=== PATIENT | female | born 1990 | race Caucasian/White ===

== ENCOUNTER 2023-10-24 13:57 | Emergency (ER) | payer SELFPAY ==
[2023-10-24 14:07] VITALS: BP 121/85; PULSE 69; RESP 14; O2SAT 97; BMI 25.7
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
[2023-10-24 17:20] VITALS: RESP 16; O2SAT 99
== END 2023-10-24 17:21 | disposition home or self-care (01) ==
PROVIDERS: Emergency Provider Nurse Practitioner Family
DX: S16.1XXA Strain of muscle, fascia and tendon at neck level, initial encounter (principal); V89.2XXA Person injured in unspecified motor-vehicle accident, traffic, initial encounter
CPT/HCPCS: 72040; 99283

== ENCOUNTER 2024-01-21 18:59 | Emergency (ER) | payer OTHER, SELFPAY ==
[2024-01-21 19:03] VITALS: BP 143/99; PULSE 91; RESP 18; TEMP 36.6; O2SAT 100
--- NOTE | 2024-01-21 20:53 | ED_ITS ---
HPI - SOB/Dyspnea General: Chief Complaint: Shortness of Breath/Dyspnea Stated Complaint: breathed in chemical mixture Time Seen by Provider: 01/21/24 20:39 History of Present Illness: HPI Narrative: Patient was here work and says she was exposed to a chemical yesterday that made her feel very short of breath. Again today she had exposure and felt very short of breath and she felt dizzy. She said then she started panicking. She feels much better now. At this point says she just would like to go home and rest. I agree. Review of Systems Narrative: Constitutional symptoms: Negative except as documented in HPI. Skin symptoms: Negative except as documented in HPI. Eye symptoms: Negative except as documented in HPI. ENMT symptoms: Negative except as documented in HPI. Respiratory symptoms: Negative except as documented in HPI. Cardiovascular symptoms: Negative except as documented in HPI. Gastrointestinal symptoms: Negative except as documented in HPI. Genitourinary symptoms: Negative except as documented in HPI. Musculoskeletal symptoms: Negative except as documented in HPI. Neurologic symptoms: Negative except as documented in HPI. Psychiatric symptoms: Negative except as documented in HPI. Endocrine symptoms: Negative except as documented in HPI. Physical Exam Narrative: EXAM NARRATIVE: General: Alert, no acute distress. Skin: Warm, dry. Head: Normocephalic, atraumatic. Neck: Supple, trachea midline. Eye: Extraocular movements are intact. Ears, nose, mouth and throat: mucosa moist. Cardiovascular: Regular, Normal peripheral perfusion. Respiratory: Lungs are clear to auscultation, respirations are non-labored, breath sounds are equal, Symmetrical chest wall expansion. Gastrointestinal: Soft, Nontender, Non distended Musculoskeletal: Normal ROM, no deformity. Neurological: Alert and oriented, No focal neurological deficit observed. Psychiatric: Cooperative, appropriate mood & affect. Course Vital Signs: Vital signs: Vital Signs Temperature 98 F 01/21/24 19:03 Pulse Rate 91 01/21/24 19:03 Respiratory Rate 18 01/21/24 19:03 Blood Pressure 143/99 01/21/24 19:03 Pulse Oximetry 100 01/21/24 19:03 Oxygen Delivery Me thod Room Air 01/21/24 19:03 MDM - SOB/Dyspnea Medical Decision Making Assessment and plan: Chemical exposure Anxiety - Discharged home - Discussed plan with patient. Answered any questions. - Evaluation and treatment of this problem were appropriate in the emergency setting. No radiology studies performed this visit Discharge Plan Discharge Patient Disposition: Home Clinical Impression: Chemical exposure Condition: Stable Prescriptions: New dexamethasone 6 mg tablet 6 mg PO DAILY 5 Days Qty: 5 0RF Discharge Orders: Discharge ED (Routine); Ordered 01/21/24 Ordered By: Lotus Gonzalez Discharge Diet: Usual diet Discharge Activity: Increase activity as tolerated Activity Restrictions/Additional Instructions: Thank you for choosing [facility] for your healthcare needs today. Please realize this is an emergency room and that we are providing you with a medical screening exam and this may not be complete and all inclusive of all the testing and or work up that you may need to determine your ailment or severity of your illness. You have been screened and evaluated and felt safe for discharge. Health conditions do change or evolve sometimes and as such it is important that you follow up with your Primary Doctor to be re checked, 3-5 days is a general good time frame for follow up. 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
[2024-01-21 21:07] VITALS: BP 114/69; PULSE 72; RESP 16; TEMP 36.6; O2SAT 98
== END 2024-01-21 21:07 | disposition home or self-care (01) ==
PROVIDERS: Emergency Provider Emergency Medicine
DX: Z77.098 Contact with and (suspected) exposure to other hazardous, chiefly nonmedicinal, chemicals (principal)
CPT/HCPCS: 99281

== ENCOUNTER 2024-05-31 17:08 | Emergency (ER) | payer OTHER, SELFPAY ==
[2024-05-31 17:13] VITALS: BP 115/81; PULSE 89; RESP 16; TEMP 36.9; O2SAT 98; BMI 26.4
--- NOTE | 2024-05-31 17:34 | W.ED.DENTAL ---
HPI - Dental/Oral General: Chief complaint: Dental/Oral Stated complaint: broken tooth, exposed root Time Seen by Provider: 05/31/24 17:18 Source: patient Mode of arrival: ambulatory Limitations: no limitations History of Present Illness: Patient is a 33-year-old female presents to the emergency department complaining of dental and facial pain over the past few days. She has a scheduled appointment with dentist on Wednesday for evaluation, as she recently fractured tooth and has another fractured tooth that she states was a result of wisdom tooth growing in. She states the pain is unbearable and she is concerned about an infection here. No fever, nausea/vomiting, or other systemic signs of illness. No trouble swallowing or painful swallowing. She has not taken anything for the pain. MD Complaint: tooth pain Onset (ago): day(s) Duration: constant Severity: severe Context: history of dental caries and poor dental care Associated symptoms: Denies ear or mastoid pain or fever(s) Treatment prior to arrival: none Related Data Previous Rx's Medication Instructions Recorded clindamycin HCl 300 mg capsule 300 mg PO BID 7 days #14 caps 05/31/24 lidocaine HCl 2 % mucosal solution 10 ml mucous membrane DAILY PRN 05/31/24 (Lidocaine Viscous) pain #100 mL Allergies Allergy/AdvReac Type Severity Reaction Status Date / Time Penicillins Allergy Unknown Verified 01/21/24 19:10 Review of Systems General: Reports: 10 or more systems reviewed and unremarkable except in HPI and below Const: Denies: fever(s), chills or fatigue Eyes: Denies: change in vision ENMT: Reports: dental pain and sinus pain; Denies: throat pain, ear or mastoid pain or nasal discharge Card: Denies: chest pain, palpitations, swelling of feet/ankles or lightheadedness Resp: Denies: dyspnea, productive cough or wheezing GI: Denies: abdominal pain, nausea, vomiting, diarrhea or constipation : Denies: flank pain, difficulty voiding, dysuria or urinary frequency Musc: Denies: neck pain, back pain or joint pain Skin/Breast: Denies: rash Neuro: Denies: headache(s), numbness in extremities or weakness in extremities Physical Exam Const: COMMON NORMALS: no acute distress and no limitations GENERAL APPEARANCE: cooperative and well developed ORIENTATION/CONSCIOUSNESS: Yes awake OTHER: Mild distress secondary to pain HENMT: COMMON NORMALS: normocephalic, atraumatic, hearing grossly normal bilaterally, Normal nasal mucous membranes and turbinates present, moist oral mucous membranes and oropharynx normal HEAD & SCALP: normocephalic and atraumatic NOSE: Normal nasal mucous membranes and turbinates present TEETH & GINGIVA: Yes abnormal tooth and associated gingiva lower right tender and dentin fractured, Yes caries, Yes multiple restorations and Yes poor dentition OTHER: Numerous fractures noted with her dentition, there is reproducible tenderness to palpation of the right maxillary face extending to the right ear Eye: COMMON NORMALS: Equal, round and reactive pupils present, EOMs intact bilaterally and conjunctivae normal CONJUNCTIVA: Yes conjunctivae normal PUPIL: Yes Equal, round and reactive pupils present Neck/C-Spine: COMMON NORMALS: full ROM and supple Extremity: COMMON NORMALS: normal to inspection, full ROM and capillary refill normal Skin: COMMON NORMALS: no rashes or lesions noted GENERAL SKIN EXAM: no rashes or lesions noted Course Vital Signs: Vital signs: Vital Signs Temperature 98.4 F 05/31/24 17:13 Pulse Rate 89 05/31/24 17:13 Respiratory Rate 16 05/31/24 17:13 Blood Pressure 115/81 05/31/24 17:13 Pulse Oximetry 98 05/31/24 17:13 Oxygen Delivery Me thod Room Air 05/31/24 17:13 MDM - Dental/Oral Medical Decision Making Patient has been his appointment on Wednesday to address her multiple fractured teeth, main concern was worsening of swelling and pain. She does have evidence of may be a dental abscess, and noting extension of the pain and swelling to her right face will treat with short course of clindamycin prior to potential procedure to remove teeth on Wednesday. Gave 1 dose of hydrocodone here as she has a ride home. Also informed her to take viscous lidocaine and apply it to the teeth if the source of the pain is primarily from the fractured teeth. Return precautions given. She agrees with discharge home at this time. No radiology studies performed this visit Discharge Plan Discharge Patient Disposition: Home Clinical Impression: Fracture of tooth, Dental abscess Condition: Stable Prescriptions: New clindamycin HCl 300 mg capsule 300 mg PO BID 7 Days Qty: 14 0RF lidocaine HCl [Lidocaine Viscous] 2 % solution 10 ml mucous membrane DAILY PRN (Reason: pain) Qty: 100 0RF Discharge Orders: Discharge ED (Routine); Ordered 05/31/24 Ordered By: Александр Vizcaino Referrals: Leana Cuellar MD [Primary Care Provider] - Patient Instructions: Dental Abscess (ED), Acute Dental Trauma (ED) Activity Restrictions/Additional Instructions: See attached patient instructions for further education. Take antibiotics as prescribed and continue plan for follow-up with dentist next week. You may apply viscous lidocaine for any tooth related pain. Tylenol/ibuprofen at home. Return with any high fevers or other concerning symptoms you may have. 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
[2024-05-31] MEDS: HYDROcodone-acetaminophen 7.5-325 mg Tablet 1 TAB PO (17:35)
[2024-05-31 17:37] VITALS: BP 125/81; PULSE 67; O2SAT 97
== END 2024-05-31 17:38 | disposition home or self-care (01) ==
PROVIDERS: Emergency Provider Physician Assistant; PCP Family Medicine
DX: S02.5XXA Fracture of tooth (traumatic), initial encounter for closed fracture (principal); K04.7 Periapical abscess without sinus; X58.XXXA Exposure to other specified factors, initial encounter
CPT/HCPCS: 99283

== ENCOUNTER 2024-10-05 23:44 | Emergency (ER) | payer OTHER, SELFPAY ==
[2024-10-06 00:03] VITALS: BP 107/72; PULSE 65; RESP 16; TEMP 36.6; O2SAT 95; BMI 28.3
--- NOTE | 2024-10-06 00:29 | ED_ITS ---
HPI - Eye Problem 2 General: Chief complaint: Eye Problems Stated complaint: Cat scratched R Eye Time Seen by Provider: 10/05/24 23:45 Source: patient Mode of arrival: ambulatory Limitations: no limitations History of Present Illness: Patient is a 33-year-old female presents to ED today for evaluation of right eye injury that she sustained yesterday evening after kitten accidentally scratched her in the eye. Last tetanus unknown. She is not having any visual changes or visual loss. chief complaint: eye injury Onset (ago): day(s) (yesterday) Onset description: sudden Duration: constant Location: right eye Eye Symptoms: pain Place: home Mechanism: direct trauma (kitten) Severity: mild Associated symptoms: Reports no associated symptoms Treatments Prior to Arrival: none Related Data Previous Rx's ?Medication ?Instructions ?Recorded lidocaine HCl 2 % mucosal solution 10 ml mucous membra ne DAILY PRN 05/31/24 (Lidocaine Viscous) pain #100 mL moxifloxacin 0.5 % eye drops 1 drp ophthalmic (eye) TI D 7 days 10/06/24 (Vigamox) #3 mL Allergies Allergy/AdvReac Type Severity Reaction Status Date / Time Penicillins Allergy Unknown Verified 01/21/24 19:10 Review of Systems 2 Eyes: Reports: photophobia and eye discomfort; Denies: change in vision, blurry vision, blind spots, floaters or seeing flashes Physical Exam 2 Const: COMMON NORMALS: no acute distress, average body habitus, no limitations, healthy appearing, alert and well nourished Eye: COMMON NORMALS: Equal, round and reactive pupils present and EOMs intact bilaterally GENERAL EYE: normal light reflex VISUAL ACUITY: Yes acuity normal ALIGNMENT: Yes alignment normal PERIORBITAL: periorbital findings normal EYELID: eyelids normal SCLERA: sclerae normal CORNEA: Yes fluorescein used (very small corneal abrasions at 5 and 8 o'clock positions) PUPIL: Yes Equal, round and reactive pupils present DIRECT OPHTHALMOSCOPY: Y es normal light reflex EYE IMAGES: 1. 2. Neuro: SENSORIUM/ORIENTATION: Yes alert Course 2 Vital Signs: Vital signs: Vital Signs Temperature 97.9 F 10/06/24 00:03 Pulse Rate 65 10/06/24 00:03 Respiratory Rate 16 10/06/24 00:03 Blood Pressure 107/72 10/06/24 00:03 Pulse Oximetry 95 10/06/24 00:03 Oxygen Delivery Me thod Room Air 10/06/24 00:03 MDM - Eye Problem Medical Decision Making Patient's tetanus will be updated. She will be covered with Vigamox ophthalmic antibiotics. Return to ED precautions. She is not having any visual changes or visual loss. Differential Diagnosis Likely corneal abrasion Medical Records I reviewed the patient's medical records. No radiology studies performed this visit Discharge Plan Discharge Patient Disposition: Home Clinical Impression: Corneal abrasion Qualifiers: Encounter type: initial encounter Laterality: right Qualified Code(s): S05.01XA - Injury of conjunctiva and corneal abrasion without foreign body, right eye, initial encounter Condition: Stable Prescriptions: New moxifloxacin [Vigamox] 0.5 % drops 1 drp ophthalmic (eye) TID 7 Days Qty: 3 0RF No Action lidocaine HCl [Lidocaine Viscous] 2 % solution 10 ml mucous membrane DAILY PRN (Reason: pain) Qty: 100 0RF Discharge Orders: Discharge ED (Routine); Ordered 10/06/24 Ordered By: Molly Khan Referrals: Leana Cuellar MD [Primary Care Provider] - Patient Instructions: Corneal Abrasion (DC) Activity Restrictions/Additional Instructions: Please fill your antibiotics first thing in the morning and start them as directed. I would anticipate the eye improving over the next 48 hours once you start antibiotics. You may return to the emergency department at anytime for worsening pain, visual changes/visual loss, severe headache, or any other concerns you may have. 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
[2024-10-06] MEDS: fluorescein 1 mg Strip EYE-RIGHT (00:34)
[2024-10-06] MEDS: tetanus-dipt-pertussis 0.5 mL SDV IM (01:04)
[2024-10-06 01:19] VITALS: BP 103/66; PULSE 58; O2SAT 97
[2024-10-06 01:20] VITALS: BP 103/66; PULSE 58; O2SAT 97
== END 2024-10-06 01:22 | disposition home or self-care (01) ==
PROVIDERS: Emergency Provider Physician Assistant; PCP Family Medicine
DX: S05.01XA Injury of conjunctiva and corneal abrasion without foreign body, right eye, initial encounter (principal); W55.03XA Scratched by cat, initial encounter; Z23 Encounter for immunization
CPT/HCPCS: 90471; 90715; 99283